=== PATIENT | female | born 1985 | race Caucasian/White ===

== ENCOUNTER 2022-04-21 09:08 | Emergency (ER) | payer SELFPAY ==
[2022-04-21] MEDS ORDERED: Albuterol 2.5 MG/0.5 ML NEB ONE (10:48)
[2022-04-21] MEDS ORDERED: Ibuprofen 200 MG TAB ONE (10:48)
[2022-04-21] MEDS ORDERED: Dexameth. Sod Phosp. 10 MG/ML (CHEMO USE ONLY) ONE (10:48)
== END 2022-04-21 11:23 | disposition home or self-care (01) ==
LOC: ERS 09:08
DX: J40 Bronchitis, not specified as acute or chronic (principal); J01.90 Acute sinusitis, unspecified; F17.210 Nicotine dependence, cigarettes, uncomplicated
CPT/HCPCS: 71045; 94640; J1100; J7611

== ENCOUNTER 2024-11-29 21:21 | Emergency (ER) | payer BC, SELFPAY ==
[2024-11-29] MEDS ORDERED: Acetaminophen 500 MG TAB ONE (22:00)
[2024-11-29] MEDS ORDERED: Ketorolac Tromethamine 30 MG (1 mL) VIAL ONE (23:40)
[2024-11-29] MEDS ORDERED: Dexamethasone 10 MG/ML VIAL ONE (23:40)
== END 2024-11-30 00:29 | disposition home or self-care (01) ==
LOC: ERS 21:21
DX: M54.12 Radiculopathy, cervical region (principal); F17.210 Nicotine dependence, cigarettes, uncomplicated
CPT/HCPCS: 96374; 96375; J1100; J1885; J2060; J3010